=== PATIENT | male | born 1940 | race Caucasian/White ===

== ENCOUNTER 2020-11-07 13:20 | Emergency (ER) | payer MEDICARE, SELFPAY ==
--- NOTE | ~2020-11-07 | CT_ITS ---
EXAMINATION: CT BRAIN WITHOUT CONTRAST CT CERVICAL SPINE WITHOUT CONTRAST CLINICAL INFORMATION: Fall. COMPARISON: None TECHNIQUE: 5 mm thin axial and reformatted 2 mm thin sagittal and coronal images of brain were obtained. Subsequently axial 3 mm thin and reformatted 2 mm thin sagittal and coronal images of cervical spine were obtained. DLP: 1128 mGy-cm FINDINGS: BRAIN: There is no acute intra-axial, extra-axial bleed, masses or midline shift. There is no acute infarct in evolution. Both lateral ventricles are symmetrical in size and configuration with mild enlargement. There is mild periventricular hypodensity without mass effect in both cerebral hemispheres. Bone windows reveal no calvarial abnormality. Bilateral paranasal sinuses are well aerated and clear. There is mild deviation of nasal septum to the left. CERVICAL SPINE: There is reversal of cervical lordosis. There is mild scoliosis with head tilted to the left. The vertebral heights and alignment is normal. There is severe loss of C4-C5, C5-C6 and C6-C7 disc heights with moderate ventral and mild posterior spondylosis. Rest of the disc heights are maintained normal. The craniovertebral junction and the C1-C2 alignment is normal. There is bilateral C2-C3, C3-C4 and C4-C5 facet joint arthropathy and hypertrophy. There is no visible acute fracture, dislocation or subluxation. The prevertebral and paravertebral soft tissues are normal CT/CT cervical spine wo con IMPRESSION: No acute intracranial process seen. Mild cerebral volume loss with chronic small vessel ischemic changes in both cerebral hemispheres. There is no acute fracture, dislocation or subluxation seen in cervical spine. There is reversal of cervical lordosis with degenerative disc changes, facet joint arthropathy and hypertrophy as described above.
--- NOTE | ~2020-11-07 | XR_ITS ---
EXAMINATION: LEFT FOREARM, RIGHT SHOULDER AND RIGHT HIP CLINICAL INFORMATION: Fall. COMPARISON: None TECHNIQUE: Left forearm 2 views. Right shoulder 3 views. Right hip 2 views FINDINGS: Left forearm: There is no visible acute fracture, dislocation or subluxation. No bony or erosive changes. The soft tissues are normal. Right shoulder: There is mild cephalic migration of humeral head in relation to glenoid. No visible acute fracture or dislocation seen. There is mild arthritic changes and loose bodies along the right AC joint. The soft tissues unremarkable. Right hip: There is severe loss of right hip joint space with deformity of the femoral articular head and subchondral cystic changes suggestive of advanced degenerative changes. Moderate right lateral acetabular spurring is seen. XR/XR shoulder RT min 2V IMPRESSION: Unremarkable left forearm exam. Cephalic migration of humeral head in relation to the glenoid suggestive of or CTA or degeneration. There is degenerative arthritic changes right AC joint. No acute fracture a dislocation right shoulder. Severe degenerative changes right hip with deformity of the femoral articular head and subchondral cystic changes. No acute fracture seen.
--- NOTE | ~2020-11-07 | XR_ITS ---
EXAMINATION: LEFT FOREARM, RIGHT SHOULDER AND RIGHT HIP CLINICAL INFORMATION: Fall. COMPARISON: None TECHNIQUE: Left forearm 2 views. Right shoulder 3 views. Right hip 2 views FINDINGS: Left forearm: There is no visible acute fracture, dislocation or subluxation. No bony or erosive changes. The soft tissues are normal. Right shoulder: There is mild cephalic migration of humeral head in relation to glenoid. No visible acute fracture or dislocation seen. There is mild arthritic changes and loose bodies along the right AC joint. The soft tissues unremarkable. Right hip: There is severe loss of right hip joint space with deformity of the femoral articular head and subchondral cystic changes suggestive of advanced degenerative changes. Moderate right lateral acetabular spurring is seen. XR/XR hip RT min 2V IMPRESSION: Unremarkable left forearm exam. Cephalic migration of humeral head in relation to the glenoid suggestive of or CTA or degeneration. There is degenerative arthritic changes right AC joint. No acute fracture a dislocation right shoulder. Severe degenerative changes right hip with deformity of the femoral articular head and subchondral cystic changes. No acute fracture seen.
--- NOTE | ~2020-11-07 | XR_ITS ---
EXAMINATION: LEFT FOREARM, RIGHT SHOULDER AND RIGHT HIP CLINICAL INFORMATION: Fall. COMPARISON: None TECHNIQUE: Left forearm 2 views. Right shoulder 3 views. Right hip 2 views FINDINGS: Left forearm: There is no visible acute fracture, dislocation or subluxation. No bony or erosive changes. The soft tissues are normal. Right shoulder: There is mild cephalic migration of humeral head in relation to glenoid. No visible acute fracture or dislocation seen. There is mild arthritic changes and loose bodies along the right AC joint. The soft tissues unremarkable. Right hip: There is severe loss of right hip joint space with deformity of the femoral articular head and subchondral cystic changes suggestive of advanced degenerative changes. Moderate right lateral acetabular spurring is seen. XR/XR forearm LT 2V IMPRESSION: Unremarkable left forearm exam. Cephalic migration of humeral head in relation to the glenoid suggestive of or CTA or degeneration. There is degenerative arthritic changes right AC joint. No acute fracture a dislocation right shoulder. Severe degenerative changes right hip with deformity of the femoral articular head and subchondral cystic changes. No acute fracture seen.
--- NOTE | 2020-11-07 13:15 | ED_ITS ---
HPI - Fall General Chief Complaint: Fall Stated Complaint: fall down escalator Time Seen by Provider: 11/07/20 13:27 Source: patient and EMS Mode of arrival: EMS Limitations: no limitations History of Present Illness HPI Narrative: 79 yo male with hx of hypothyroidism, DM, PPM on blood thinner unsure of name comes in after using his walker [place] at mall - lost his footing and fell backwards hitting his head no LOC, c/o abrasions to R shoulder, R forearm, L forearm, no neck pain collar does not fit him appropriately, R hip pain MD complaint: fall Onset (ago): minute(s) Fall from: other (fell backwards on escalator ) Fall witnessed: yes, by bystander Place fall occurred: other (mall) Loss of consciousness: none Prolonged down time: no Symptoms prior to fall: none Context: tripped/slipped Location of injury: head Location of injury - extremities: left: forearm and right: shoulder and lower leg Severity: moderate Quality: burning and dull Associated symptoms (after fall): denies Related Data Allergies Allergy/AdvReac Type Severity Reaction Status Date / Time No Known Allergies Allergy Verified 11/07/20 13:27 Review of Systems Review of Systems: Constitutional : No Fever, No Chills ENT/Mouth : No Ear Pain, No Hoarseness, No sore throat Eyes: No Eye Pain, No Swelling, No Redness, No Foreign Body Cardiovascular : No Chest Pain, No SOB Respiratory : No Cough, No Dyspnea Gastrointestinal : No Nausea, No Vomiting, No Diarrhea, No abdominal Pain Genitourinary : No Dysuria, No Hematuria Musculoskeletal : positive joint pain, No Myalgias, No Joint Swelling Skin : No Skin lacerations, pos skin abrasions Neuro : No Weakness, No Numbness, No Loss of Consciousness, No Dizziness, No Headache Psych : No Anxiety/Panic, No Depression Heme/Lymph: no easy bruising, no Lymphadenopathy Endocrine : No Polyuria, No Polydipsia All other systems reviewed and are negative FOR[facility] Past Medical History Attestation statement: The following information was validated with the patient. Medical History (Updated 11/07/20 @ 16:19 by Ev Malloy DO) Arrhythmia Arthritis Diabetes Hypothyroidism Pacemaker Social History Social History (Updated 11/07/20 @ 13:38 by Ev Malloy DO) Alcohol intake: never Smoking Status: Never smoker Use of substances other than those prescribed or required for medical reasons: No Advance Directives: Yes Advance Directives Information Provided: No Advance Directives on File: No Physical Exam Vital Signs: Vital Signs: Last Vital Signs Temp 98.1 F 11/07/20 13:52 Pulse 69 11/07/20 15:00 Resp 18 11/07/20 15:00 BP 136/68 11/07/20 15:00 Pulse Ox 95 11/07/20 15:00 Body Mass Index 30.7 Appearance: Alert. Oriented X3. No acute distress. Eyes: Pupils equal, round and reactive to light. ENT: Pharynx normal. Neck: Normal inspection. Neck supple. Collar does not fit correctly denies neck pain no pain with midline palpation CVS: Normal heart rate and rhythm. Pulses normal. Respiratory: No respiratory distress. Breath sounds normal. Abdomen: Soft and nontender. Skin: Skin warm and dry. Normal skin color. Normal skin turgor. Extremities: No lower extremity edema. L forearm multiple superficial skin tears, R forearm abrasion noted with guerrero from escalator, superficial abrasion noted posterior R shoulder, ttp R hip with ROM Neuro: Oriented X 3. No motor deficit. No sensory deficit. Course Course Course Narrative: no acute findings, stable for DC steady gait feels okay MDM - Fall MDM Narrative Medical decision making narrative: 79 yo male with hx of hypothyroidism, DM, PPM on blood thinner unsure of name comes in after using his walker [place] escal[place] mall - lost his footing and fell backwards hitting his head no LOC, c/o abrasion s to R shoulder, R forearm, L forearm, no neck pain collar does not fit him appropriately, R hip pain at this time will obtain imaging of extremeties - R shoulder, R hip, L forearm, CT scan of head given AC therapy and CT cervical spine given age - dispo per results and findings, local wound care noted. Lab Data Result diagrams: 11/07/20 15:30 11/07/20 15:30 Labs: Lab Results 11/07/20 11/07/20 11/07/20 Range/Units 15:30 15:30 15:30 WBC 7.4 (4.8-10.8) X10*3/uL RBC 3.89 L (4.60-5.80) X10*6/uL Hgb 11.2 L (14.0-18.0) g/dl Hct 34.8 L (42-52) % MCV 89.5 (80-98) fL MCH 28.8 (27.0-33.0) pg MCHC 32.2 (31.0-36.0) g/dl RDW 12.9 (11.0-16.0) % Plt Count 195 (160-400) X10*3/uL MPV 10.0 (9.4-12.4) fL Immature Gran % (Auto) 0.4 (0.0-0.4) % Neut % (Auto) 74.3 H (45-73) % Lymph % (Auto) 14.0 L (20-40) % [place] % (Auto) 7.9 (2-11) % Eos % (Auto) 3.3 (0-4) % Baso % (Auto) 0.1 (0-2) % Lymph # (Auto) 1.0 L (1.2-4.9) X10*3/uL [place] # (Auto) 0.6 (0.1-1.2) X10*3/uL Eos # (Auto) 0.2 (0.0-0.4) X10*3/uL Baso # (Auto) 0.0 (0.0-0.2) X10*3/uL Abs Immat Gran (auto) 0.03 (0.00-0.03) X10*3/uL Absolute Neuts (auto) 5.5 (2.0-8.3) X10*3/uL Absolute Nucleated RBC 0.000 (0.0-0.012) X10*3/uL Nucleated RBC % (auto) 0.0 (0.0-0.2) /100WBC PT 12.5 (10.8-13.0) SEC INR 1.1 (0.9-1.1) APTT 32.6 (24.1-38.0) SEC Sodium 140 (135-145) mmol/L Potassium 4.7 (3.3-5.1) mmol/L Chloride 106 (96-108) mmol/L Carbon Dioxide 25 (22-29) mmol/L Anion Gap 14 (12-20) BUN 20 H (9-16) mg/dL Creatinine 0.92 (0.5-1.4) mg/dL Estim Creat Clear Calc 72.7 Estimated GFR > 60 Random Glucose 116 H (60-115) mg/dL Calcium 8.6 (8.4-10.2) mg/dL Discharge Plan Discharge Clinical Impression: Head injury, Contusion, Avulsion of skin Patient Disposition: Home, Self-Care Instructions: Skin Avulsion (ED), Head Injury (ED) Additional Instructions: return to ED for any worsening symptoms or concerns PLEASE CHANGE DRESSINGS DAILY MONITOR FOR SIGNS OF REDNESS, YELLOW DRAINAGE, SWELLING, KEEP COVERED IT WILL TAKE 2 WEEKS TO HEAL Referrals: Allen Marte MD [Primary Care Provider] - 5 days (wound check)
[2020-11-07 13:37] VITALS: BP 140/82; BP 157/87; PULSE 82; PULSE 90; RESP 16; TEMP 36.7; O2SAT 98; BMI 30.7
[2020-11-07 13:52] VITALS: BP 157/87; PULSE 82; RESP 16; TEMP 36.7; O2SAT 98
[2020-11-07 15:00] VITALS: BP 136/68; PULSE 69; RESP 18; O2SAT 95
[2020-11-07 15:34] LABS: MANUAL DIFF FLAG NO
[2020-11-07 15:37] LABS: Basophils Percent Auto 0.1 % (0-2); Eosinophils Absolute Auto 0.2 X10*3/uL (0.0-0.4); Eosinophils Percent Auto 3.3 % (0-4); Hematocrit 34.8 % (42-52); Hemoglobin 11.2 g/dl (14.0-18.0); Imm Gran Abs Auto 0.03 X10*3/uL (0.00-0.03); Imm Gran Pct Auto 0.4 % (0.0-0.4); Mean Corpuscular HGB Conc 32.2 g/dl (31.0-36.0); Mean Corpuscular Hemoglobin 28.8 pg (27.0-33.0); Mean Corpuscular Volume 89.5 fL (80-98); Monocytes Absolute Auto 0.6 X10*3/uL (0.1-1.2); Monocytes Percent Auto 7.9 % (2-11); Neutrophils Absolute Auto 5.5 X10*3/uL (2.0-8.3); Neutrophils Percent Auto 74.3 % (45-73); Platelet Count 195 X10*3/uL (160-400); Red Blood Count 3.89 X10*6/uL (4.60-5.80); Red Cell Distribution Width 12.9 % (11.0-16.0); White Blood Count 7.4 X10*3/uL (4.8-10.8)
[2020-11-07 15:41] LABS: INTERNATIONAL NORM RATIO 1.1 (0.9-1.1); Prothrombin Time 12.5 SEC (10.8-13.0)
[2020-11-07 15:44] LABS: Partial Thromboplastin Time 32.6 SEC (24.1-38.0)
[2020-11-07 16:08] LABS: Anion Gap 14 (12-20); Blood Urea Nitrogen 20 mg/dL (9-16); Calcium 8.6 mg/dL (8.4-10.2); Carbon Dioxide 25 mmol/L (22-29); Chloride 106 mmol/L (96-108); Creatinine Clr Calc Pharmacy 72.7; Estimated Glomerular Filt Rate > 60; Glucose Random 116 mg/dL (60-115); Potassium 4.7 mmol/L (3.3-5.1); Sodium 140 mmol/L (135-145)
--- NOTE | 2020-11-07 16:16 | PC.NURSE ---
pt ambulatory in room with rommel
[2020-11-07 16:19] VITALS: BP 144/79; PULSE 70; RESP 16; O2SAT 98
[2020-11-07] MEDS: Acetaminophen 325 MG TABLET 975 MG PO (16:20)
== END 2020-11-07 17:46 | disposition home or self-care (01) ==
PROVIDERS: Emergency Provider Emergency Medicine; PCP Internal Medicine
DX: S00.93XA Contusion of unspecified part of head, initial encounter (principal); S40.212A Abrasion of left shoulder, initial encounter; S40.211A Abrasion of right shoulder, initial encounter; M54.2 Cervicalgia; M25.551 Pain in right hip; W10.0XXA Fall (on)(from) escalator, initial encounter; Y93.9 Activity, unspecified; Y92.59 Other trade areas as the place of occurrence of the external cause; Y99.9 Unspecified external cause status; Z79.899 Other long term (current) drug therapy
CPT/HCPCS: 36415; 70450; 72125; 73030; 73090; 73502; 80048; 85025; 85610; 85730; 99285